=== PATIENT | female | born 1945 | race Caucasian/White ===

== ENCOUNTER 2018-12-06 06:33 | Day surgery (SDC) | payer MEDICARE, BC ==
[~2018-12-06] VITALS: Ht 162.6 cm; Wt 34.7 kg
[2018-12-06] VITALS (18 sets, daily range): BP systolic 90–135; BP diastolic 54–76
[2018-12-06] MEDS ORDERED: morphine 10mg/ml inj. IM ONE (07:05)
[2018-12-06 07:31] LABS: BASOPHILS # (AUTO) 0.1 X10'3 (0-0.2); BASOPHILS % (AUTO) 0.7 % (0-1); EOSINOPHILS # (AUTO) 0.1 X10'3 (0-0.9); EOSINOPHILS % (AUTO) 1.1 % (0-6); HEMATOCRIT 38.3 % (35.0-45.0); HEMOGLOBIN 12.7 g/dl (12.0-16.0); LYMPHOCYTES # (AUTO) 0.5 X10'3 (1.1-4.8); LYMPHOCYTES % (AUTO) 6.7 % (21-51); MEAN CORPUSCULAR HEMOGLOBIN 32.6 PG (27.0-31.0); MEAN CORPUSCULAR HGB CONC 33.2 g/dL (33.0-36.5); MEAN CORPUSCULAR VOLUME 98.1 FL (78-98); MONOCYTES # (AUTO) 0.7 X10'3 (0-0.9); MONOCYTES % (AUTO) 9.2 % (2-12); NEUTROPHILS # (AUTO) 6.2 X10'3 (1.8-7.7); NEUTROPHILS % (AUTO) 82.3 % (42-75); PLATELET COUNT 268 X10'3 (140-440); RED BLOOD COUNT 3.91 X10'6 (4.20-5.60); RED CELL DISTRIBUTION WIDTH 14.3 % (11.5-14.5); WHITE BLOOD COUNT 7.5 X10'3 (4.5-11.0)
[2018-12-06] MEDS ORDERED: MIDAZolam 5mg/5ml vial ONE (07:33)
[2018-12-06] MEDS ORDERED: fentaNYL/PF 50MCG/1 ML 2ML syringe ONE (07:34)
[2018-12-06] MEDS ORDERED: MECO10002 (07:41)
[2018-12-06] MEDS ORDERED: [UNRECOGNIZED DRUG - CODE] (07:41)
[2018-12-06] MEDS ORDERED: vitamin d (07:41)
[2018-12-06] MEDS ORDERED: METH2.5T PO (07:41)
[2018-12-06] MEDS ORDERED: SULF500T59 PO (07:41)
[2018-12-06] MEDS ORDERED: ATOR10TA87 PO (07:41)
[2018-12-06] MEDS ORDERED: folic acid PO (07:41)
[2018-12-06] MEDS ORDERED: lidocaine 2% viscous 15 ML cup ***bronch room only MM ONE (07:47)
[2018-12-06] MEDS ORDERED: LIDOCAINE 4% (40MG/ML) topical solution 50ml **BRONCH ONLY ONE (07:47)
[2018-12-06] MEDS ORDERED: epiNEPHrine 1 MG/ML 1 ml ampule **BRONCH ONLY ONE (07:47)
[2018-12-06] MEDS ORDERED: phenylephrine 1% Nasal spray (extra-strength) 15 ML bottle **bronch room NS ONE (07:48)
[2018-12-06] MEDS ORDERED: LIDOcaine 4% (40 mg/ml) topical solution 50ml MM ONE (07:55)
[2018-12-06] MEDS ORDERED: LIDOcaine 2% 5ml jelly TOP ONE (08:30)
[2018-12-06] MEDS ORDERED: phenylephrine 1% (X-tra strg) 15ml nasal spray NS PRN ×2 (08:30→08:40)
== END 2018-12-06 11:00 | disposition home or self-care (01) ==
LOC: SSTAY O 06:33
PROVIDERS: ATTEND Internal Medicine Pulmonary Disease
DX: C34.11 Malignant neoplasm of upper lobe, right bronchus or lung (principal); Z98.890 Other specified postprocedural states; F17.210 Nicotine dependence, cigarettes, uncomplicated
CPT/HCPCS: 31628; 36415; 76499; 82378; 85025; 87070; 94640; 94760; J0171; J2250; J2270; J3010; 31622; 88108; 88173; 88305